=== PATIENT | female | born 1970 | race Caucasian/White ===

== ENCOUNTER 2023-02-07 02:23 | Emergency (ER) | payer BC, SELFPAY ==
[2023-02-07 02:32] VITALS: BP 174/80; PULSE 83; RESP 18; TEMP 37.2; O2SAT 99; BMI 44.8
--- NOTE | 2023-02-07 03:18 | CRLHL7_ITS ---
For Patients: As a result of the Century Cures Act, medical imaging exams and procedure reports are released immediately into your electronic medical record. You may view this report before your referring provider. If you have questions, please contact your health care provider. INDICATION: Cough TECHNIQUE: Chest radiograph 1 view COMPARISON: None FINDINGS: The sensitivity and specificity of the exam are moderately limited by the patient`s body habitus. Mediastinum: The mediastinum is normal in appearance. The heart silhouette is normal in size and morphology. Lung: Both lungs are unremarkable in appearance with small lung volumes. No sign of pleural effusion seen. No pneumothorax is identified. Bone and Soft tissue: Unremarkable for age. IMPRESSION: 1. No acute cardiopulmonary disease is seen. Dictated by: Javi Oseguera MD @ 02/07/2023 03:42:02 (Electronically Signed)
--- NOTE | 2023-02-07 03:34 | ED.GENADULT ---
HPI - General Adult General Chief complaint: Cough Stated complaint: Cough, sore throat Time Seen by Provider: 02/07/23 02:32 History of Present Illness HPI narrative: 52 year old woman presenting to the emergency department with concern primarily of cough. 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 She has had cold symptoms for about a week. Earlier in the week went to urgent care had a strep swab done which is negative. She was given Tessalon pearls. Has also tried guaifenesin and pseudoephedrine. It's just not improving. Gestures to a tickle in her throat/suprasternal area. Hasn't had any fever. Not really short of breath outside of coughing. Does not have reactive airway history. Does have sore throat that might associate with cough. No chest pain. Related Data Home Medications Medication Instructions Recorded Confirmed No Known Home Medications 02/07/23 02/07/23 Allergies Allergy/AdvReac Type Severity Reaction Status Date / Time No Known Drug Allergies Allergy Verified 02/07/23 02:35 Review of Systems Status of ROS: Reports: 6 or more systems reviewed and unremarkable except as noted in History and below [facility] Medical History No significant past medical history Surgical History (Updated 02/07/23 @ 04:58 by Jason Cox RN) No significant past surgical history Social History Smoking Status: Never smoker Do you use any of these nicotine containing products: None Second hand tobacco smoke exposure: No How often do you have a drink containing alcohol: never How often do you have six or more drinks on one occasion: Never AUDIT-C Alcohol total score: 0 Non-prescribed substance use: denies use Exam Narrative: Exam Narrative: pleasant. nad. Laryngitic. breathing is unlabored. lungs-- coughs on exhalation. mild squeaks, wheeze. heart in rrr, without mrg. nasopharyngeal congestion. mild posterior oropharyngeal erythema. minimal cobblestoning. no facial swelling or erythema or tenderness. neck supple without LA. Const: Vital Signs, click to edit/add: Vital Signs - 24 hr 02/07/23 02:32 Temperature 99.0 F Pulse Rate [Right Pulse Oximeter] 83 Respiratory Rate 18 Blood Pressure [Ri ght Upper Arm] 174/80 H Pulse Oximetry 99 Oxygen Delivery Me thod Room Air Documenting provider has reviewed patient's vital signs: yes Course Vital Signs Vital signs: Initial Vital Signs Respiratory Effort Normal, Spontaneous, Non-Labored 02/07/23 02:30 Respiratory Depth Normal 02/07/23 02:30 Respiratory Pattern Normal 02/07/23 02:30 Vital Signs Temperature 99.0 F 02/07/23 02:32 Pulse Rate 83 02/07/23 02:32 Respiratory Rate 18 02/07/23 02:32 Blood Pressure 174/80 H 02/07/23 02:32 Pulse Oximetry 99 02/07/23 02:32 Oxygen Delivery Method Room Air 02/07/23 02:32 Temperature 98.4 F 02/07/23 04:50 Pulse Rate 79 02/07/23 04:50 Respiratory Rate 18 02/07/23 04:50 Blood Pressure 135/74 02/07/23 04:50 Pulse Oximetry 99 02/07/23 04:50 Oxygen Delivery Method Room Air 02/07/23 04:50 Medical Decision Making MDM Narrative Medical decision making narrative: suspect pnd contributing to cough, laryngitis. likely viral uri. rad history needs prednisone. prudent to do cxr to eval for pneumonia at this point. possible laryngeal spasm. cxr by my read without infiltrate but difficult for evauate images. sxs likely residual inflammatory matters. unlikely influenza or covid. see pt discharge plan Discharge Plan Discharge Clinical Impression: Postnasal drip, Cough, Laryngitis Patient Disposition: Home, Self-Care Condition: Stable Additional Instructions: Focus on hydration. Sleep under the mist of a cool mist humidifier. Menthol vapors might be helpful. Anesthetic lozenges or sprays like Sucrets or Chloraseptic might be helpful. Consider sucking on ice chips. Sleep with head elevated perhaps in a recliner. Continue with pseudoephedrine for drying/decongestion and therefore potentially helpful with what I think is some postnasal drip contributing to your cough. Another option is diphenhydramine as it can be drying but also might be sedating. Prednisone from [facility] can be a little stimulating. Guaifenesin with codeine as well from [facility]. Prescriptions: No Action No Known Home Medications Follow Up/Referrals: Provider,Not a Local [Primary Care Provider] - Stand Alone Forms: MyHealth Info Instructions
[2023-02-07 04:05] VITALS: BP 174/80; PULSE 83; RESP 18; TEMP 37.2
[2023-02-07 04:50] VITALS: BP 135/74; PULSE 79; RESP 18; TEMP 36.9; O2SAT 99
== END 2023-02-07 04:50 | disposition home or self-care (01) ==
PROVIDERS: Emergency Provider Family Medicine
DX: R05.9 Cough, unspecified (principal); R09.82 Postnasal drip; J04.0 Acute laryngitis
CPT/HCPCS: 71045; 99283; 99284